=== PATIENT | female | born 1990 | race Two or more races ===

== ENCOUNTER 2021-05-07 19:07 | Emergency (ER) | payer OTHER ==
[~2021-05-07] VITALS: Ht 165.1 cm; Wt 68.0 kg
--- NOTE | 2021-05-07 19:22 | NUR ---
DR. ALLISON AT BEDSIDE, MSE IN PROGRESS.
[2021-05-07 19:48] LABS: HEMATOCRIT 45.2 % (31.2-41.9); MEAN CORPUSCULAR HEMOGLOBIN 31.4 uug (24.7-32.8); MEAN CORPUSCULAR VOLUME 88.5 fL (75.5-95.3); PLATELET COUNT (AUTO) 550 K/uL (179-408)
[2021-05-07] MEDS: ONDANSETRON 4 MG/2 ML VIAL IV ONE (19:50)
[2021-05-07] MEDS ORDERED: KETOROLAC TROMETHAMINE 15 MG INJ ONE (19:51)
[2021-05-07] MEDS ORDERED: ONDANSETRON 4 MG/2 ML VIAL ONE (19:51)
[2021-05-07] MEDS: KETOROLAC TROMETHAMINE 15 MG INJ IVP ONE (19:51)
[2021-05-07] MEDS: IV NORMAL SALINE 1000 ML BAG IV ONE (19:51)
[2021-05-07 19:58] LABS: CARBON DIOXIDE 39 mmol/L (21-32); CHLORIDE 89 mmol/L (98-107); CREATININE 0.8 mg/dL (0.6-1.3); UREA NITROGEN, BLOOD 14 mg/dL (7-18)
[2021-05-07 20:00] LABS: GLUCOSE 482 mg/dL (74-106)
[2021-05-07 20:03] LABS: ALANINE AMINOTRANSFERASE 18 U/L (14-59); ALKALINE PHOSPHATASE 170 U/L (50-136); ASPARTATE AMINOTRANSFERASE 13 U/L (15-37); BILIRUBIN,DIRECT 0.2 mg/dL (0.0-0.2); BILIRUBIN,TOTAL 0.7 mg/dL (0.2-1.0); LIPASE 92 U/L (73-393); TOTAL PROTEIN, SERUM 8.7 g/dL (6.4-8.2)
[2021-05-07] MEDS: IV NORMAL SALINE 500 ML BAG IV ONE (20:44)
[2021-05-07] MEDS: HALOPERIDOL LACTATE 5 MG/1 ML VIAL IV ONE (20:44)
[2021-05-07] MEDS: MIDAZOLAM HCL 2 MG/2 ML VIAL IV ONE (20:44)
[2021-05-07] MEDS ORDERED: HALOPERIDOL LACTATE 5 MG/1 ML VIAL ONE (20:47)
[2021-05-07] MEDS ORDERED: MIDAZOLAM HCL 2 MG/2 ML VIAL ONE (20:47)
[2021-05-07] MEDS ORDERED: IV NORMAL SALINE 250 ML IV ONE (21:37)
[2021-05-07] MEDS ORDERED: SWABABLE VALVE TRANSFER SET EA MC ONE (21:37)
[2021-05-07] MEDS ORDERED: IOHEXOL 300MG/ML 100 ML INFUS..BTL ONE (21:37)
--- NOTE | 2021-05-07 21:38 | NUR ---
PT TAKEN DOWN FOR CT.
[2021-05-07 21:53] LABS: ETHANOL < 3 MG/DL (0-0)
--- NOTE | 2021-05-07 21:56 | NUR ---
PT RETURNED FROM CT.
[2021-05-08] MEDS: IV NORMAL SALINE 500 ML BAG IV ONE (00:20)
[2021-05-08] MEDS: CEFTRIAXONE 1 G in IV DEXTROSE 5% 50 ML IV ONE (00:21)
[2021-05-08] MEDS ORDERED: CEFTRIAXONE /D5W 50ML IVPB **ER PYXIS IV ONE (00:25)
[2021-05-08 01:10] LABS: *BILIRUBIN,URIN NEGATIVE (NEGATIVE); *BLOOD, URINE 2+ (NEGATIVE); *CLARITY,URINE CLOUDY (CLEAR); *COLOR,URINE YELLOW (YELLOW); *KETONES,URINE 2+ (NEGATIVE); *UROBILINOGEN,URINE 0.2 E.U./dl (NORMAL); LEUKOCYTE ESTERASE ,URINE NEGATIVE (NEGATIVE); NITRITE, URINE NEGATIVE (NEGATIVE); UGLUCOSE 2+ (NEGATIVE)
[2021-05-08 01:22] LABS: BACTERIA,URINE FEW /HPF (NONE SEEN); SQUAMOUS EPITHELIAL CELL,UR MODERATE /HPF (NONE SEEN); WBC,URINE 0-3 /HPF (0-3)
[2021-05-08] MEDS ORDERED: CIPR500T5 PO (01:32)
[2021-05-08] MEDS ORDERED: ONDA4TAB11 PO (01:32)
[2021-05-08 01:34] LABS: *AMPHETAMINE, URINE POSITIVE (NEGATIVE); *CANNABINOID, URINE POSITIVE (NEGATIVE); *COCCAINE, URINE NEGATIVE (NEGATIVE); *OPIATE, URINE NEGATIVE (NEGATIVE); *PHENCYCLIDINE SCREEN,URINE NEGATIVE (NEGATIVE)
--- NOTE | 2021-05-08 02:30 | NUR ---
Patient discharged to home in stable condition. Written and verbal after care instructions given. Patient verbalizes understanding of instructions. Stressed follow up or return to ER for worsening s/s. Patient ambulated with steady gait. Instructed patient that she may not drive, verbalized stating her uncle is picking her up. IV removed. Catheter intact and site benign. Pressure and 4x4 gauze applied to site. No bleeding noted.
[2021-05-08 02:31] VITALS: BP 127/88
== END 2021-05-08 02:33 | disposition home or self-care (01) ==
LOC: ER 19:10
DX: E86.0 Dehydration (principal); N12 Tubulo-interstitial nephritis, not specified as acute or chronic; E11.9 Type 2 diabetes mellitus without complications; Z88.0 Allergy status to penicillin; Z20.822 Contact with and (suspected) exposure to COVID-19
CPT/HCPCS: 36415; 71045; 74177; 80048; 80076; 80307; 80320; 81001; 83690; 84484; 84702; 85025; 87426; 93005; 96361; 96365; 96375; 99285; J0696; J1630; J1885; J2250; J2405; Q9967; 70030-TC; A4663; G0480; J7030; J7050